=== PATIENT | female | born 1965 | race Two or more races ===

== ENCOUNTER 2017-01-01 11:51 | Emergency (ER) | payer MEDICAID ==
[~2017-01-01] VITALS: Ht 165.1 cm; Wt 75.0 kg
[2017-01-01] MEDS ORDERED: ONDANSETRON 2MG/ML, 2ML IVPush ONE (12:30)
[2017-01-01] MEDS ORDERED: SODIUM CHLORIDE 0.9% 1,000ML IVBOLUS ONE (12:30)
[2017-01-01] MEDS ORDERED: SODIUM CHLORIDE FLUSH 10ML SYR IVF ONE (12:30)
[2017-01-01] MEDS ORDERED: ONDANSETRON 2MG/ML, 2ML ONE (12:34)
[2017-01-01 13:00] LABS: HEMATOCRIT 46.7 % (34.6-47.8); HEMOGLOBIN 15.2 g/dL (11.7-16.4); WHITE BLOOD COUNT 11.2 x10^3/uL (3.4-10)
[2017-01-01 13:04] LABS: ASPARTATE AMINO TRANSFERASE 14 U/L (15-37); BLOOD UREA NITROGEN 10 mg/dL (7-18)
[2017-01-01 13:28] VITALS: BP 144/92
== END 2017-01-01 13:30 | disposition home or self-care (01) ==
LOC: ED 13:25
DX: E86.0 Dehydration (principal); R11.2 Nausea with vomiting, unspecified; E78.00 Pure hypercholesterolemia, unspecified
CPT/HCPCS: 36415; 80053; 85025; 93005; 96361; 96374; 99285; J2405; J7030

== ENCOUNTER 2020-04-04 11:27 | Emergency (ER) | payer MEDICAID, OTHER ==
[~2020-04-04] VITALS: Ht 165.1 cm; Wt 69.0 kg
--- NOTE | 2020-04-04 14:24 | NUR ---
PT CAME IN [place], [place]ILL[place] AND [place]. PT HAD A POSITIVE COVID TEST LAST SATURDAY. X RAY REVEALED PNEUMONIA. PT RESTING IN [facility] CONNECTED TO MONITORING EQUIPMENT.
[2020-04-04] MEDS ORDERED: DOXYCYCLINE 100 MG in DEXTROSE 5% 250 ML IV SCH (15:00)
[2020-04-04 15:08] LABS: BASOPHILS % (AUTO) 0 % (0-1); EOSINOPHILS % (AUTO) 0 % (1-7); LYMPHOCYTES % (AUTO) 23 % (22-44); MEAN CORPUSCULAR HEMOGLOBIN 29.5 pg (27.0-34.8); MEAN CORPUSCULAR HGB CONC 33.6 g/dL (32.4-35.8); MEAN PLATELET VOLUME 9.9 fL (7.4-10.4); MONOCYTES % (AUTO) 9 % (2-9); NEUTROPHILS % (AUTO) 68 % (42-75); PLATELET COUNT 219 x10^3/uL (130-400); RED BLOOD COUNT 5.21 x10^6/uL (3.82-5.3); RED CELL DISTRIBUTION WIDTH 13.1 % (9.6-15.2)
[2020-04-04 15:17] LABS: ANION GAP 9 mmol/L (5-15); CALCIUM 9.3 mg/dL (8.5-10.1); CHLORIDE 108 mmol/L (98-107); MD NO
--- NOTE | 2020-04-04 15:24 | NUR ---
BLOOD CULTURES DRAWN PRIOR TO ADM OF ABX
[2020-04-04 15:26] LABS: ALANINE AMINOTRANSFERASE 20 U/L (12-78); ALKALINE PHOSPHATASE 87 U/L (45-117); BILIRUBIN,TOTAL 0.4 mg/dL (0.2-1.0); CREATININE 0.54 mg/dL (0.55-1.02); TOTAL PROTEIN 8.3 g/dL (6.4-8.2)
[2020-04-04 15:42] LABS: D-DIMER (DIC) 0.38 ug/mlFEU (0.00-0.52); PROTIME 10.3 Seconds (9.6-11.5)
[2020-04-04 17:03] VITALS: BP 138/82
== END 2020-04-04 17:18 | disposition home or self-care (01) ==
LOC: ED 15:48
DX: J15.9 Unspecified bacterial pneumonia (principal); B34.9 Viral infection, unspecified; R51.9 Headache, unspecified; R94.31 Abnormal electrocardiogram [ECG] [EKG]; R06.02 Shortness of breath; I10 Essential (primary) hypertension; E78.00 Pure hypercholesterolemia, unspecified
CPT/HCPCS: 36415; 71045; 80053; 82728; 83605; 83615; 84145; 85025; 85049; 85379; 85384; 85610; 85730; 86140; 87040; 93005; 96365; 99285; J7060